=== PATIENT | male | born 1955 ===

== ENCOUNTER → 2016-12-13 | Outpatient (CLI) | payer BC ==
--- NOTE | 2016-12-13 08:30 | CT ---
EXAMINATION TYPE: CT ankle RT wo con DATE OF EXAM: 12/13/2016 COMPARISON: NONE HISTORY: osteoarthritis CT DLP: 229.65 mGycm Automated Exposure Control for Dose Reduction was Utilized. TECHNIQUE: CT scan of the right ankle was performed without intravenous contrast. Coronal and sagitta l reformats were obtained for review. FINDINGS: There is no evidence of acute fracture or dislocation. The patient's foot is in flexion, somewhat limiting evaluation of the distal aspect of the ankle (tarsals). Moderate osteoarthrosis is seen of the hindfoot and midfoot with bony productive spurring along the medial calcaneus, lateral ca lcaneus, and sustentaculum daljit. Os trigonum is present. There is soft tissue swelling of the entirety of the visualized hindfoot and midfoot with fluid signa l seen surrounding the peroneus brevis and longus, longus greater than brevis, and fluid within the t alocalcaneal joint. Similar fluid is seen surrounding the flexor tendons deep to the ankle joint, mos t notably surrounding the flexor hallucis longus and marginal osteophytes from the medial calcaneus m ay create impingement. Extensor tendons appear unremarkable. Bony productive change/osteophytic spurring is seen at the talonavicular joint without gross evidence of impingement on the extensor tendons. Subchondral cystic changes are appreciated within the anteri or process of the calcaneus and talus. Talar dome does not demonstrate evidence of flattening. Ankle mortise is intact. No osteochondral def ect is appreciated. No current erosive changes are seen. IMPRESSION: 1. Moderate osteoarthrosis of the hindfoot and midfoot with osteophytic spurring impinging on the per oneus longus and flexor hallucis longus creating large peritendinous fluid collections most suggestiv e of tenosynovitis. Small joint effusion is also present, which could be reactive and/or infectious. Correlation with serum laboratory values is recommended as there is diffuse moderate soft tissue swel ling. 2. No evidence of acute fracture or dislocation. No evidence of avascular necrosis or osteochondral d efect.
--- NOTE | 2016-12-13 08:43 | CT ---
EXAMINATION TYPE: CT ankle LT wo con DATE OF EXAM: 12/13/2016 HISTORY: osteoarthritis COMPARISON: NONE CT DLP: 229.65 mGycm. Automated Exposure Control for Dose Reduction was Utilized. TECHNIQUE: CT scan of the abdomen and pelvis is performed without IV contrast of the left ankle. Cor onal and sagittal reformats were obtained for review. FINDINGS: There is no evidence of acute fracture or dislocation. Well-corticated, chronic appearing deformities of the lateral malleolus and posterior malleolus are thought to relate to prior fracture . Large os trigonum is seen that in combination with the posterior malleolus are hypertrophic changes may create posterior impingement syndrome. The patient's foot is in flexion, somewhat limiting evalu ation of the distal aspect of the ankle (tarsals). Similarly to the right ankle, on the left osteoarthrosis is seen of the hindfoot and midfoot with bon y productive spurring along the sustentaculum daljit, anterior facet of the calcaneus, and posterior fa cet of the calcaneus. There is hindfoot valgus with articulation of the medial talar dome with the medial tibial plafond, w ith mild joint space narrowing at this region but no opposing surface sclerosis or osteochondral defe ct. No flattening of the talar dome. There is soft tissue swelling of the entirety of the visualized hindfoot and midfoot with fluid signa l seen surrounding the peroneus brevis and longus. Soft tissue swelling is seen surrounding the flexo r and extensor tendons, however no focal fluid is seen. The tendons are somewhat attenuated of the fl exor compartment with impingement of the flexor hallucis longus along its course secondary to bony pr oductive changes at the sustentaculum daljit. Subchondral cysts and sclerosis are present of the inferior talus and facets of the calcaneus. Bony p roductive change/osteophytic spurring is seen at the talonavicular joint without gross evidence of im pingement on the extensor tendons. Subchondral cystic changes are appreciated within the calcaneus an d talus. Ankle mortise is intact. No current erosive changes are seen. Small joint effusion is seen. IMPRESSION: 1. Moderate to severe osteoarthrosis of the hindfoot and midfoot with significant osteophytic spurrin g of the sustentaculum daljit impinging on the flexor hallucis longus. 2. Large os trigonum and bony productive changes of the posterior malleolus, likely from prior fractu re although degenerative changes possible, these findings may create posterior impingement syndrome i n the appropriate clinical setting. 3. Hindfoot valgus with shift of the weightbearing surface to the medial talar dome with mild joint s pace narrowing but no current flattening of the talar dome to suggest avascular necrosis or osteochon dral defect. 4. Fluid around within the peritendinous sheath of the peroneus brevis and longus suggesting tenosyno vitis. 5. Small joint effusion is also present, which could be reactive and/or infectious. Correlation with serum laboratory values is recommended as there is diffuse moderate soft tissue swelling. 6. No evidence of acute fracture or dislocation.
== END | disposition home or self-care (01) ==
LOC: RADCTMAIN 06:52
PROVIDERS: ATTEND Orthopaedic Surgery
DX: M19.071 Primary osteoarthritis, right ankle and foot (principal); E11.9 Type 2 diabetes mellitus without complications; M21.41 Flat foot [pes planus] (acquired), right foot; M79.672 Pain in left foot; M21.42 Flat foot [pes planus] (acquired), left foot; M25.571 Pain in right ankle and joints of right foot; M25.572 Pain in left ankle and joints of left foot; M19.072 Primary osteoarthritis, left ankle and foot; Z87.81 Personal history of (healed) traumatic fracture